=== PATIENT | female | born 1935 | race Caucasian/White ===

== ENCOUNTER 2017-04-30 01:26 | Inpatient (IN) | payer OTHER ==
[~2017-04-30] VITALS: Ht 149.9 cm; Wt 43.9 kg
[2017-04-30 02:08] LABS: HEMATOCRIT 36.4 % (36.0-46.0); HEMOGLOBIN 11.8 G/DL (11.9-15.5); MCH 31.8 PG (29.0-34.0); MCHC 32.4 G/DL (30.0-36.0); MCV 98.1 FL (83-99); PLATELET COUNT 394 K/uL (156-360); RBC DIS.WIDTH-CV 13.3 % (11.8-14.6); RBC DIS.WIDTH-SD 47.4 % (39-53); RED BLOOD COUNT 3.71 M/uL (3.80-5.20); WHITE BLOOD COUNT 18.1 K/uL (4.1-10.2)
[2017-04-30 02:19] LABS: ALBUMIN 3.3 g/dL (3.2-4.8); CHLORIDE 95 mEq/L (99-109); POTASSIUM 3.9 mEq/L (3.7-5.4); SODIUM 138 mEq/L (136-147)
[2017-04-30 02:21] LABS: TOTAL PROTEIN 7.1 g/dL (6.4-8.3)
[2017-04-30 02:23] LABS: TOTAL BILIRUBIN 0.2 mg/dL (0.0-1.0)
[2017-04-30 02:25] LABS: ALKALINE PHOSPHATASE 58 IU/L (3-129); CREATININE 1.5 mg/dL (0.6-1.3); GFR ESTIMATE (CALCULATED) 36 mL/min/
[2017-04-30 02:26] LABS: AST (GOT) 44 IU/L (2-34); UREA NITROGEN (BUN) 22 mg/dL (9-23)
[2017-04-30 02:28] LABS: ALT (GPT) 22 IU/L (3-49)
[2017-04-30 02:29] LABS: TROP-I INTERPRETATION NEGATIVE; TROPONIN-I 0.01 ng/mL (0.0-0.30)
[2017-04-30 02:43] LABS: GLUCOSE 41 mg/dL (70-99)
[2017-04-30 06:09] VITALS: BP 158/68
[2017-04-30 07:54] VITALS: BP 166/76
[2017-04-30 09:30] LABS: Estimated Average Glucose 128 mg/dL (70-123); HEMOGLOBIN A1c (GLYCOHEMOGLOB) 6.1 % HGB (Below 5.7)
[2017-04-30] MEDS ORDERED: ADVAIR 250/501 DISK IH (10:47)
[2017-04-30] MEDS ORDERED: SPIRIVA1 INHALATI IH (10:47)
[2017-04-30] MEDS ORDERED: CARDIZEM CD360 MG PO (10:48)
[2017-04-30] MEDS ORDERED: RALOXIFENE HCL60 MG PO (10:49)
[2017-04-30] MEDS ORDERED: BUMEX0.5 MG PO (10:49)
[2017-04-30] MEDS ORDERED: LORAZEPAM0.5 MG PO (10:50)
[2017-04-30] MEDS ORDERED: GLIMEPIRIDE1 MG PO (10:50)
[2017-04-30 10:51] LABS: APPEARANCE CLOUDY ((CLEAR)); BILIRUBIN NEGATIVE; BLOOD NEGATIVE; COLOR YELLOW ((YELLOW)); GLUCOSE (STRIP) 50; KETONES NEGATIVE; LEUKOCYTES LARGE; NITRITE NEGATIVE; PROTEIN (STRIP) NEGATIVE; SPECIFIC GRAVITY 1.005 (1.000-1.030); UROBILINOGEN 0.2 MG/DL (0.2-1.0)
[2017-04-30] MEDS ORDERED: PROTONIX40 MG PO (10:51)
[2017-04-30] MEDS ORDERED: CALCIUM 500 MG1 EACH PO (10:51)
[2017-04-30] MEDS ORDERED: CENTRUM SILVER1 EAC3 PO (10:52)
[2017-04-30] MEDS ORDERED: CHILD ASPIRIN81 M1 PO (10:52)
[2017-04-30 11:02] LABS: BACTERIA 1+ /HPF; EPITHELIAL CELLS RARE /HPF; RED BLOOD CELLS 0-5 /HPF (0-5); WHITE BLOOD CELLS TNTC /HPF (0-5)
[2017-04-30 11:03] LABS: MUCUS NONE SEEN /LPF
[2017-04-30] MEDS ORDERED: ATIVAN0.5 MG PO (11:15)
[2017-04-30 11:33] VITALS: BP 148/63
[2017-04-30 16:56] VITALS: BP 159/80
[2017-04-30 19:56] VITALS: BP 133/62
[2017-04-30 23:14] VITALS: BP 170/72
[2017-05-01 05:23] VITALS: BP 170/81
[2017-05-01 07:39] VITALS: BP 158/70
[2017-05-01] MEDS ORDERED: CEFTIN250 MG PO (08:59)
[2017-05-01 12:01] VITALS: BP 146/67
== END 2017-05-01 14:30 | disposition home health service (06) | DRG 918 ==
LOC: EME → EDBD 01:26 → EDOF 04:21 → ENRESERV 04:23 → 5WEST 06:04 → ENRESERV 13:53 → 5WEST 15:14 → ENRESERV 15:37 → 4EAST 16:14
PROVIDERS: Emergency Medicine; Family Medicine
DX: T38.3X1A Poisoning by insulin and oral hypoglycemic [antidiabetic] drugs, accidental (unintentional), initial encounter (principal); J43.9 Emphysema, unspecified; E11.649 Type 2 diabetes mellitus with hypoglycemia without coma; Z99.81 Dependence on supplemental oxygen; Z87.891 Personal history of nicotine dependence; Z66 Do not resuscitate; R09.02 Hypoxemia; I10 Essential (primary) hypertension; H91.90 Unspecified hearing loss, unspecified ear; F03.90 Unspecified dementia, unspecified severity, without behavioral disturbance, psychotic disturbance, mood disturbance, and anxiety
CPT/HCPCS: 71010; 71020; 80053; 81003; 82948; 83036; 84484; 85027; 87040; 87086; 93005; 94640; 94640 76; 94799; 99202; 99281; 99284; J0696

== ENCOUNTER 2017-10-09 09:02 | Emergency (ER) | payer OTHER ==
[~2017-10-09] VITALS: Ht 152.4 cm; Wt 39.0 kg
[~2017-10-09 09:02] MED LIST: ADVAIR 250/501 DISK IH; ATIVAN0.5 MG PO; BUMEX0.5 MG PO; CALCIUM 500 MG1 EACH PO; CARDIZEM CD360 MG PO; CEFTIN250 MG PO; CENTRUM SILVER1 EAC3 PO; CHILD ASPIRIN81 M1 PO; GLIMEPIRIDE1 MG PO; LORAZEPAM0.5 MG PO; PROTONIX40 MG PO; RALOXIFENE HCL60 MG PO; SPIRIVA1 INHALATI IH
[2017-10-09 09:58] LABS: BASOPHIL (%) 0.5 % (0-1); BASOPHIL COUNT 0.1 K/uL (0-0.1); EOSINOPHIL (%) 2.5 % (0-5); EOSINOPHIL COUNT 0.3 K/uL (0-0.3); HEMATOCRIT 29.6 % (36.0-46.0); HEMOGLOBIN 9.9 G/DL (11.9-15.5); IMMATURE GRANULOCYTE (%) 2.1 % (0.0-0.7); LYMPHOCYTE (%) 20.7 % (15-42); LYMPHOCYTE COUNT 2.6 K/uL (1.0-2.8); MCH 32.4 PG (29.0-34.0); MCHC 33.4 G/DL (30.0-36.0); MCV 96.7 FL (83-99); NEUTROPHIL (%) 66.2 % (45-76); NEUTROPHIL COUNT 8.2 K/uL (1.8-6.4); PLATELET COUNT 244 K/uL (156-360); RBC DIS.WIDTH-CV 14.5 % (11.8-14.6); RBC DIS.WIDTH-SD 50.9 % (39-53); RED BLOOD COUNT 3.06 M/uL (3.80-5.20); WHITE BLOOD COUNT 12.3 K/uL (4.1-10.2)
[2017-10-09 10:07] LABS: CHLORIDE 106 mEq/L (99-109); POTASSIUM 4.2 mEq/L (3.7-5.4); SODIUM 144 mEq/L (136-147)
[2017-10-09 10:09] LABS: GLUCOSE 95 mg/dL (70-99)
[2017-10-09 10:12] LABS: CREATININE 1.4 mg/dL (0.6-1.3); GFR ESTIMATE (CALCULATED) 38 mL/min/
[2017-10-09 10:13] LABS: UREA NITROGEN (BUN) 20 mg/dL (9-23)
[2017-10-09 11:30] VITALS: BP 125/79
== END 2017-10-09 11:45 | disposition home or self-care (01) ==
LOC: EME 09:02
PROVIDERS: Emergency Medicine
DX: S09.90XA Unspecified injury of head, initial encounter (principal); S00.81XA Abrasion of other part of head, initial encounter; S00.83XA Contusion of other part of head, initial encounter; W01.0XXA Fall on same level from slipping, tripping and stumbling without subsequent striking against object, initial encounter; D64.9 Anemia, unspecified; F03.90 Unspecified dementia, unspecified severity, without behavioral disturbance, psychotic disturbance, mood disturbance, and anxiety; I10 Essential (primary) hypertension; J44.9 Chronic obstructive pulmonary disease, unspecified; Z79.82 Long term (current) use of aspirin; Z79.84 Long term (current) use of oral hypoglycemic drugs; Z99.81 Dependence on supplemental oxygen
CPT/HCPCS: 70450; 80048; 85025; 93005; 99281; 99284